=== PATIENT | female | born 1985 | race Two or more races ===

== ENCOUNTER 2021-07-21 16:19 | Inpatient (IN) | payer OTHER ==
[2021-07-21 17:00] VITALS: BMI 23.7
[2021-07-21] MEDS ORDERED: ACETAMINOPHEN 325 MG TABLET (FP) PO PRN (17:34)
[2021-07-21] MEDS ORDERED: P-EPHED 60MG/TRIPROLIDI 2.5MG TABLET PO PRN (17:34)
[2021-07-21] MEDS ORDERED: MELATONIN 5 MG TABLETS PO PRN (17:34)
[2021-07-21] MEDS ORDERED: MAGNESIUM HYDROX 2400MG/30ML ORAL SUSPENSION 30 ML CUP PO PRN (17:34)
[2021-07-21] MEDS ORDERED: MAGNESIUM CITRATE 300 ML BOTTLE PO PRN (17:34)
[2021-07-21] MEDS ORDERED: NICOTINE POLACRILEX 2 MG GUM BC PRN (17:34)
[2021-07-21] MEDS ORDERED: LOPERAMIDE HCL 2 MG CAPSULE PO PRN (17:34)
[2021-07-21] MEDS ORDERED: MAG HYDROX/AL HYDROX/SIMETH 30 ML UNIT-DOSE CUP PO PRN (17:34)
[2021-07-21] MEDS ORDERED: IBUPROFEN 400 MG TABLET (FP) PO PRN (17:34)
[2021-07-21] MEDS: ALBUTEROL SO4 HFA INHALER IH PRN (22:28)
[2021-07-21] MEDS: THIAMINE HCL 100 MG TABLET (FP) PO SCH (22:29)
[2021-07-21] MEDS ORDERED: TUBERCULIN PPD 5 TU/0.1ML VIAL ID ONE ×2 (22:30→23:01)
[2021-07-21] MEDS: guaiFENesin 200 MG/10 ML 10 ML UNIT-DOSE CUPS PO PRN (23:01)
[2021-07-22] MEDS: PRENATAL VITAMINS W/ FOLIC ACID TABLET (FP) PO SCH (10:49)
[2021-07-22 12:14] LABS: HEMATOCRIT 35.9 % (32.4-45.2); HEMOGLOBIN 12.4 GM/dL (10.7-15.3); MCH 30.6 pg (25.7-33.7); MCHC 34.5 g/dl (32.0-36.0); MEAN CELL VOLUME 88.9 fl (80-96); MEAN PLT VOLUME 8.2 fl (7.5-11.1); PLATELET COUNT 345 10^3/uL (134-434); RBC 4.04 M/mm3 (3.60-5.2); RDW 14.3 % (11.6-15.6); WHITE BLOOD COUNT 7.4 K/mm3 (4.0-10.0)
[2021-07-22 12:18] LABS: ALBUMIN 2.9 g/dl (3.4-5.0); CALCIUM 7.9 mg/dL (8.5-10.1)
[2021-07-22 12:21] LABS: CREATININE 0.7 mg/dL (0.55-1.3)
[2021-07-22 12:23] LABS: BILIRUBIN,TOTAL 0.3 mg/dL (0.2-1); TOT PROT 6.2 g/dl (6.4-8.2)
[2021-07-22] MEDS: hydrOXYzine PAMOATE 25 MG CAPSULE (FP) PO PRN ×2 (12:28→21:37)
[2021-07-22 13:12] LABS: HIV INTERPRETATION NEGATIVE (NEGATIVE)
[2021-07-22] MEDS: ALBUTEROL SO4 HFA INHALER IH PRN (15:55)
[2021-07-22] MEDS: guaiFENesin 200 MG/10 ML 10 ML UNIT-DOSE CUPS PO PRN ×2 (15:56→21:38)
[2021-07-22] MEDS: THIAMINE HCL 100 MG TABLET (FP) PO SCH (21:37)
[2021-07-22] MEDS: ZIPRASIDONE 40 MG CAPSULE PO SCH (22:23)
[2021-07-23] MEDS: ZIPRASIDONE 40 MG CAPSULE PO SCH ×2 (10:21→23:52)
[2021-07-23] MEDS: PRENATAL VITAMINS W/ FOLIC ACID TABLET (FP) PO SCH (10:21)
[2021-07-23] MEDS: ALBUTEROL SO4 HFA INHALER IH PRN (16:50)
[2021-07-23 21:41] LABS: URINE APPEARANCE CLEAR; URINE BILIRUBIN NEGATIVE (NEGATIVE); URINE COLOR YELLOW; URINE GLUCOSE (UA) NEGATIVE (NEGATIVE); URINE KETONE NEGATIVE (NEGATIVE); URINE LEUK ESTERASE NEGATIVE (NEGATIVE); URINE NITRITE NEGATIVE (NEGATIVE); URINE PROTEIN NEGATIVE (NEGATIVE); URINE UROBILINOGEN 0.2 mg/dL (0.2-1.0)
[2021-07-23] MEDS: THIAMINE HCL 100 MG TABLET (FP) PO SCH (23:52)
[2021-07-24] MEDS: ALBUTEROL SO4 HFA INHALER IH PRN ×2 (02:49→08:20)
[2021-07-24] MEDS: ZIPRASIDONE 40 MG CAPSULE PO SCH ×2 (10:10→22:01)
[2021-07-24] MEDS: PRENATAL VITAMINS W/ FOLIC ACID TABLET (FP) PO SCH (10:10)
[2021-07-24] MEDS: hydrOXYzine PAMOATE 25 MG CAPSULE (FP) PO PRN (10:31)
[2021-07-24] MEDS: THIAMINE HCL 100 MG TABLET (FP) PO SCH (22:01)
[2021-07-25] MEDS: ALBUTEROL SO4 HFA INHALER IH PRN ×2 (03:06→08:57)
[2021-07-25] MEDS: PRENATAL VITAMINS W/ FOLIC ACID TABLET (FP) PO SCH (10:13)
[2021-07-25] MEDS: ZIPRASIDONE 40 MG CAPSULE PO SCH ×2 (10:13→21:34)
[2021-07-25] MEDS: hydrOXYzine PAMOATE 50 MG CAPSULE (FP) PO PRN ×2 (10:45→21:34)
[2021-07-25] MEDS: THIAMINE HCL 100 MG TABLET (FP) PO SCH (21:34)
[2021-07-26] MEDS: ALBUTEROL SO4 HFA INHALER IH PRN ×2 (06:59→17:09)
[2021-07-26] MEDS: ZIPRASIDONE 40 MG CAPSULE PO SCH ×2 (10:06→21:32)
[2021-07-26] MEDS: PRENATAL VITAMINS W/ FOLIC ACID TABLET (FP) PO SCH (10:06)
[2021-07-26] MEDS: hydrOXYzine PAMOATE 50 MG CAPSULE (FP) PO PRN ×2 (10:07→21:32)
[2021-07-26] MEDS: THIAMINE HCL 100 MG TABLET (FP) PO SCH (21:32)
[2021-07-27] MEDS: PRENATAL VITAMINS W/ FOLIC ACID TABLET (FP) PO SCH (10:00)
[2021-07-27] MEDS: hydrOXYzine PAMOATE 50 MG CAPSULE (FP) PO PRN (10:00)
[2021-07-27] MEDS: ZIPRASIDONE 40 MG CAPSULE PO SCH ×2 (10:00→21:38)
[2021-07-27] MEDS: NICOTINE 10 MG CARTRIDGE (INHALER) IH PRN (10:00)
[2021-07-27] MEDS: ALBUTEROL SO4 HFA INHALER IH PRN (21:37)
[2021-07-27] MEDS: THIAMINE HCL 100 MG TABLET (FP) PO SCH (21:38)
[2021-07-28] MEDS: ALBUTEROL SO4 HFA INHALER IH PRN ×3 (08:14→20:16)
[2021-07-28] MEDS: ZIPRASIDONE 40 MG CAPSULE PO SCH ×2 (10:03→21:30)
[2021-07-28] MEDS: PRENATAL VITAMINS W/ FOLIC ACID TABLET (FP) PO SCH (10:03)
[2021-07-28] MEDS: hydrOXYzine PAMOATE 50 MG CAPSULE (FP) PO PRN (10:04)
[2021-07-28] MEDS ORDERED: INSULIN SLIDING SCALE (NOVOLOG) 1 VIAL SQ SCH (16:30)
[2021-07-28] MEDS: INSULIN SLIDING SCALE (NOVOLOG) 1 VIAL SQ SCH (17:12)
[2021-07-28] MEDS: THIAMINE HCL 100 MG TABLET (FP) PO SCH (21:30)
[2021-07-29] MEDS: ALBUTEROL SO4 HFA INHALER IH PRN ×3 (06:14→20:27)
[2021-07-29] MEDS: INSULIN SLIDING SCALE (NOVOLOG) 1 VIAL SQ SCH ×3 (06:18→17:16)
[2021-07-29] MEDS: PRENATAL VITAMINS W/ FOLIC ACID TABLET (FP) PO SCH (10:20)
[2021-07-29] MEDS: ZIPRASIDONE 40 MG CAPSULE PO SCH ×2 (10:20→21:38)
[2021-07-29] MEDS: hydrOXYzine PAMOATE 50 MG CAPSULE (FP) PO PRN ×2 (10:21→21:38)
[2021-07-29] MEDS: THIAMINE HCL 100 MG TABLET (FP) PO SCH (21:38)
[2021-07-30] MEDS: ALBUTEROL SO4 HFA INHALER IH PRN ×2 (04:37→17:04)
[2021-07-30] MEDS: INSULIN SLIDING SCALE (NOVOLOG) 1 VIAL SQ SCH ×3 (06:57→17:04)
[2021-07-30] MEDS: PRENATAL VITAMINS W/ FOLIC ACID TABLET (FP) PO SCH (10:24)
[2021-07-30] MEDS: hydrOXYzine PAMOATE 50 MG CAPSULE (FP) PO PRN (10:24)
[2021-07-30] MEDS: ZIPRASIDONE 40 MG CAPSULE PO SCH ×2 (10:24→21:41)
[2021-07-30] MEDS: NICOTINE 10 MG CARTRIDGE (INHALER) IH PRN (10:25)
[2021-07-30] MEDS: HYDROCORTISONE 1% TOPICAL CREAM 30 GM TUBE TP SCH ×2 (14:30→21:42)
[2021-07-30] MEDS: THIAMINE HCL 100 MG TABLET (FP) PO SCH (21:41)
[2021-07-31] MEDS: ALBUTEROL SO4 HFA INHALER IH PRN ×3 (02:47→21:46)
[2021-07-31] MEDS ORDERED: INSULIN (NOVOLOG) ASPART 100 UNITS/ML 10ML VIAL ONE (05:11)
[2021-07-31] MEDS: INSULIN SLIDING SCALE (NOVOLOG) 1 VIAL SQ SCH ×3 (06:42→17:01)
[2021-07-31] MEDS: PRENATAL VITAMINS W/ FOLIC ACID TABLET (FP) PO SCH (10:21)
[2021-07-31] MEDS: NICOTINE 10 MG CARTRIDGE (INHALER) IH PRN (10:22)
[2021-07-31] MEDS: HYDROCORTISONE 1% TOPICAL CREAM 30 GM TUBE TP SCH ×2 (10:22→21:46)
[2021-07-31] MEDS: hydrOXYzine PAMOATE 50 MG CAPSULE (FP) PO PRN (10:22)
[2021-07-31] MEDS: ZIPRASIDONE 40 MG CAPSULE PO SCH ×2 (10:22→21:46)
[2021-07-31] MEDS: THIAMINE HCL 100 MG TABLET (FP) PO SCH (21:46)
[2021-08-01] MEDS: INSULIN SLIDING SCALE (NOVOLOG) 1 VIAL SQ SCH ×3 (06:31→17:44)
[2021-08-01] MEDS: PRENATAL VITAMINS W/ FOLIC ACID TABLET (FP) PO SCH (10:28)
[2021-08-01] MEDS: hydrOXYzine PAMOATE 50 MG CAPSULE (FP) PO PRN ×2 (10:28→21:59)
[2021-08-01] MEDS: NICOTINE 10 MG CARTRIDGE (INHALER) IH PRN (10:29)
[2021-08-01] MEDS: ZIPRASIDONE 40 MG CAPSULE PO SCH ×2 (10:29→21:59)
[2021-08-01] MEDS: HYDROCORTISONE 1% TOPICAL CREAM 30 GM TUBE TP SCH ×2 (10:29→22:01)
[2021-08-01] MEDS: ALBUTEROL SO4 HFA INHALER IH PRN (20:46)
[2021-08-01] MEDS: THIAMINE HCL 100 MG TABLET (FP) PO SCH (21:59)
[2021-08-02] MEDS ORDERED: INSULIN (NOVOLOG) ASPART 100 UNITS/ML 10ML VIAL ONE (03:12)
[2021-08-02] MEDS: INSULIN SLIDING SCALE (NOVOLOG) 1 VIAL SQ SCH ×3 (06:41→16:43)
[2021-08-02] MEDS: hydrOXYzine PAMOATE 50 MG CAPSULE (FP) PO PRN ×2 (10:14→21:40)
[2021-08-02] MEDS: ALBUTEROL SO4 HFA INHALER IH PRN ×2 (10:14→21:41)
[2021-08-02] MEDS: PRENATAL VITAMINS W/ FOLIC ACID TABLET (FP) PO SCH (10:14)
[2021-08-02] MEDS: ZIPRASIDONE 40 MG CAPSULE PO SCH ×2 (10:16→21:40)
[2021-08-02] MEDS: HYDROCORTISONE 1% TOPICAL CREAM 30 GM TUBE TP SCH ×2 (10:16→21:41)
[2021-08-02] MEDS: THIAMINE HCL 100 MG TABLET (FP) PO SCH (21:41)
[2021-08-03] MEDS: INSULIN SLIDING SCALE (NOVOLOG) 1 VIAL SQ SCH ×3 (06:21→17:12)
[2021-08-03] MEDS: ALBUTEROL SO4 HFA INHALER IH PRN (06:58)
[2021-08-03] MEDS: ZIPRASIDONE 40 MG CAPSULE PO SCH ×2 (10:09→21:36)
[2021-08-03] MEDS: HYDROCORTISONE 1% TOPICAL CREAM 30 GM TUBE TP SCH ×2 (10:09→21:40)
[2021-08-03] MEDS: PRENATAL VITAMINS W/ FOLIC ACID TABLET (FP) PO SCH (10:10)
[2021-08-03] MEDS: THIAMINE HCL 100 MG TABLET (FP) PO SCH (21:36)
[2021-08-04] MEDS: INSULIN SLIDING SCALE (NOVOLOG) 1 VIAL SQ SCH ×3 (06:33→16:57)
[2021-08-04] MEDS: ALBUTEROL SO4 HFA INHALER IH PRN ×2 (06:50→17:12)
[2021-08-04] MEDS: PRENATAL VITAMINS W/ FOLIC ACID TABLET (FP) PO SCH (10:35)
[2021-08-04] MEDS: hydrOXYzine PAMOATE 50 MG CAPSULE (FP) PO PRN ×2 (10:35→21:26)
[2021-08-04] MEDS: HYDROCORTISONE 1% TOPICAL CREAM 30 GM TUBE TP SCH (10:36)
[2021-08-04] MEDS: ZIPRASIDONE 40 MG CAPSULE PO SCH ×2 (10:36→21:26)
[2021-08-04] MEDS: THIAMINE HCL 100 MG TABLET (FP) PO SCH (21:26)
[2021-08-04] MEDS: MELATONIN 5 MG TABLETS PO PRN (21:26)
[2021-08-05] MEDS: INSULIN SLIDING SCALE (NOVOLOG) 1 VIAL SQ SCH ×3 (06:32→17:29)
[2021-08-05] MEDS: ALBUTEROL SO4 HFA INHALER IH PRN (07:26)
[2021-08-05] MEDS: PRENATAL VITAMINS W/ FOLIC ACID TABLET (FP) PO SCH (10:17)
[2021-08-05] MEDS: ZIPRASIDONE 40 MG CAPSULE PO SCH ×2 (10:17→21:34)
[2021-08-05] MEDS: hydrOXYzine PAMOATE 50 MG CAPSULE (FP) PO PRN ×2 (10:18→21:33)
[2021-08-05] MEDS: NICOTINE 10 MG CARTRIDGE (INHALER) IH PRN ×2 (10:19→21:33)
[2021-08-05] MEDS: THIAMINE HCL 100 MG TABLET (FP) PO SCH (21:33)
[2021-08-05] MEDS: MELATONIN 5 MG TABLETS PO PRN (21:33)
[2021-08-06] MEDS: INSULIN SLIDING SCALE (NOVOLOG) 1 VIAL SQ SCH ×3 (07:15→16:30)
[2021-08-06] MEDS: PRENATAL VITAMINS W/ FOLIC ACID TABLET (FP) PO SCH (10:16)
[2021-08-06] MEDS: ZIPRASIDONE 40 MG CAPSULE PO SCH ×2 (10:17→21:32)
[2021-08-06] MEDS: hydrOXYzine PAMOATE 50 MG CAPSULE (FP) PO PRN (10:18)
[2021-08-06] MEDS ORDERED: INSULIN (NOVOLOG) ASPART 100 UNITS/ML 10ML VIAL ONE (16:23)
[2021-08-06] MEDS: THIAMINE HCL 100 MG TABLET (FP) PO SCH (21:32)
[2021-08-06] MEDS: NICOTINE 10 MG CARTRIDGE (INHALER) IH PRN (21:33)
[2021-08-06] MEDS: MELATONIN 5 MG TABLETS PO PRN (21:34)
[2021-08-07] MEDS: INSULIN SLIDING SCALE (NOVOLOG) 1 VIAL SQ SCH ×3 (06:17→16:31)
[2021-08-07] MEDS: ALBUTEROL SO4 HFA INHALER IH PRN ×2 (08:05→21:39)
[2021-08-07 08:13] VITALS: TEMP 98.4
[2021-08-07] MEDS: ZIPRASIDONE 40 MG CAPSULE PO SCH ×2 (10:07→21:37)
[2021-08-07] MEDS: PRENATAL VITAMINS W/ FOLIC ACID TABLET (FP) PO SCH (10:07)
[2021-08-07] MEDS: hydrOXYzine PAMOATE 50 MG CAPSULE (FP) PO PRN ×2 (10:07→21:39)
[2021-08-07] MEDS ORDERED: INSULIN (NOVOLOG) ASPART 100 UNITS/ML 10ML VIAL ONE (16:30)
[2021-08-07 17:18] LABS: EPI CELLS >36 /uL (0-25.1); HYALINE CASTS 0 /uL (0-3.1); PH,URINE 6.5 (5.0-8.0); URINE APPEARANCE CLEAR; URINE BACTERIA 1295 /uL (0-1359); URINE BILIRUBIN NEGATIVE (NEGATIVE); URINE COLOR YELLOW; URINE GLUCOSE (UA) NEGATIVE (NEGATIVE); URINE KETONE NEGATIVE (NEGATIVE); URINE LEUK ESTERASE TRACE (NEGATIVE); URINE NITRITE NEGATIVE (NEGATIVE); URINE PROTEIN NEGATIVE (NEGATIVE); URINE UROBILINOGEN 0.2 mg/dL (0.2-1.0); URINE WBC 34 /uL (0-25.8)
[2021-08-07 17:38] LABS: URINE RBC 21 /uL (0-23.9)
[2021-08-07] MEDS: THIAMINE HCL 100 MG TABLET (FP) PO SCH (21:37)
[2021-08-07] MEDS: MELATONIN 5 MG TABLETS PO PRN (21:37)
[2021-08-08] MEDS: INSULIN SLIDING SCALE (NOVOLOG) 1 VIAL SQ SCH ×3 (06:45→16:34)
[2021-08-08] MEDS: hydrOXYzine PAMOATE 50 MG CAPSULE (FP) PO PRN ×2 (10:15→21:40)
[2021-08-08] MEDS: PRENATAL VITAMINS W/ FOLIC ACID TABLET (FP) PO SCH (10:15)
[2021-08-08] MEDS: ZIPRASIDONE 40 MG CAPSULE PO SCH ×2 (10:15→21:40)
[2021-08-08] MEDS: NICOTINE 10 MG CARTRIDGE (INHALER) IH PRN ×4 (10:16→21:38)
[2021-08-08] MEDS ORDERED: FLUCONAZOLE 150 MG TABLET PO ONE (12:05)
[2021-08-08] MEDS ORDERED: FLUCONAZOLE 50 MG TABLET PO ONE (12:05)
[2021-08-08] MEDS: MICONAZOLE NITRATE 14 GM/TUBE TUBE TP SCH ×2 (12:24→21:39)
[2021-08-08] MEDS: ALBUTEROL SO4 HFA INHALER IH PRN (12:31)
[2021-08-08] MEDS ORDERED: INSULIN (NOVOLOG) ASPART 100 UNITS/ML 10ML VIAL ONE (16:30)
[2021-08-08] MEDS: THIAMINE HCL 100 MG TABLET (FP) PO SCH (21:40)
[2021-08-08] MEDS: MELATONIN 5 MG TABLETS PO PRN (21:40)
[2021-08-09 07:13] VITALS: BP 96/67; PULSE 78
[2021-08-09] MEDS: INSULIN SLIDING SCALE (NOVOLOG) 1 VIAL SQ SCH (07:16)
[2021-08-09] MEDS: MICONAZOLE NITRATE 14 GM/TUBE TUBE TP SCH (10:15)
[2021-08-09] MEDS: PRENATAL VITAMINS W/ FOLIC ACID TABLET (FP) PO SCH (10:15)
[2021-08-09] MEDS: ZIPRASIDONE 40 MG CAPSULE PO SCH (10:17)
[2021-08-09] MEDS: NICOTINE 10 MG CARTRIDGE (INHALER) IH PRN (10:28)
== END 2021-08-09 10:20 | disposition home or self-care (01) | DRG 772 ==
LOC: YASAS 16:19 → Y5N 21:56
PROVIDERS: ADMIT Allergy & Immunology; ATTEND Allergy & Immunology
PROC: HZ42ZZZ Group Counseling for Substance Abuse Treatment, Cognitive-Behavioral (ICD-10-PCS; principal; 2021-07-21)
DX: F10.20 Alcohol dependence, uncomplicated (principal); F14.20 Cocaine dependence, uncomplicated; F17.210 Nicotine dependence, cigarettes, uncomplicated; F19.282 Other psychoactive substance dependence with psychoactive substance-induced sleep disorder; F19.280 Other psychoactive substance dependence with psychoactive substance-induced anxiety disorder; F25.9 Schizoaffective disorder, unspecified; J45.909 Unspecified asthma, uncomplicated; B37.3 Candidiasis of vulva and vagina; E11.65 Type 2 diabetes mellitus with hyperglycemia; G24.01 Drug induced subacute dyskinesia; Z62.810 Personal history of physical and sexual abuse in childhood; Z86.19 Personal history of other infectious and parasitic diseases; Z91.51 Personal history of suicidal behavior; Z56.0 Unemployment, unspecified; Z59.00 Homelessness unspecified
CPT/HCPCS: 36415; 80053; 81003; 81025; 82962; 85027; 86593; 86780; 87086; 87389; 87491; 87591; 87661; 87811; C9803-CS; U0003; U0005